=== PATIENT | male | born 1950 | race Caucasian/White ===

== ENCOUNTER 2018-12-14 19:24 | Inpatient (IN) | payer OTHER ==
[~2018-12-14] VITALS: Ht 188 cm; Wt 109.8 kg
[2018-12-14 19:25] VITALS: BP 187/98
--- NOTE | 2018-12-14 19:48 | NUR ---
PT IS TEARFUL, REPORTS STAFF WAS ROUGH WITH HIM DURING BATHING. "TOSSING ME AROUND."
[2018-12-14 19:57] LABS: URINE BILIRUBIN NEGATIVE (Negative); URINE BLOOD TRACE (Negative); URINE CLARITY SL CLOUDY; URINE COLOR YELLOW; URINE GLUCOSE-RANDOM* TRACE (Negative); URINE KETONES NEGATIVE (Negative); URINE LEUKOCYTES-REFLEX NEGATIVE (Negative); URINE NITRITE-REFLEX NEGATIVE (Negative); URINE PROTEIN (DIPSTICK) 2+ (Negative)
[2018-12-14 20:08] LABS: ABSOLUTE NEUTROPHILS 8.4 thou/uL (1.4-8.2); BASOPHILS 1.2 % (0.0-2.0); EOSINOPHILS 2.1 % (0.0-3.0); HEMATOCRIT 43.1 % (42.0-52.0); HEMOGLOBIN 14.1 gm/dL (14.0-18.0); LYMPHOCYTES 16.3 % (24.0-44.0); MCH 27.3 pg (26.0-34.0); MCHC 32.7 g/dL (28.0-37.0); MCV 83.4 fL (80.0-100.0); MONOCYTES 8.2 % (1.0-8.0); PLATELET COUNT 150 thou/uL (150-400); POLYS 72.2 % (36.0-66.0); RBC 5.16 mil/uL (4.50-6.00); RDW 14.4 % (10.5-14.5); WBC 11.6 thou/uL (4.0-11.0)
[2018-12-14 20:10] LABS: AMORPHOUS URATES Many /LPF (None Seen); BACTERIA-REFLEX None Seen /HPF (None Seen); CRYSTALS None Seen /LPF (None Seen); HYALINE CASTS 0-3 Few /LPF (None Seen); MUCUS 0-3 Light strn/LPF (None Seen); SQUAMOUS None Seen /LPF (0-3); URINE RBC 0-2 Rare /HPF (0-2); URINE WBC-REFLEX None Seen /HPF (0-5)
[2018-12-14 20:14] LABS: CALCIUM 9.1 mg/dL (8.5-10.1)
[2018-12-14 20:14] LABS: AMP/METHAMP Negative (Negative); BARBITURATES Negative (Negative); BENZODIAZEPINES Negative (Negative); COCAINE Negative (Negative); METHADONE Negative (Negative); OPIATES POSITIVE (Negative); PCP Negative (Negative)
[2018-12-14 20:17] LABS: SALICYLATE < 2.8 mg/dL (2.8-20.0)
[2018-12-14] MEDS ORDERED: NITROGLYCERIN0.4 MG SUBLING (20:34)
[2018-12-14] MEDS ORDERED: NOVOLOG100 UNIT/1 SUBQ (20:37)
[2018-12-14] MEDS ORDERED: NYAMYC15 GM TOP (20:37)
[2018-12-14] MEDS ORDERED: OMEPRAZOLE 20 M20 M1 PO (20:38)
[2018-12-14] MEDS ORDERED: BASAGLAR K100 UNIT/1 SUBQ (20:38)
[2018-12-14] MEDS ORDERED: BENADRYL25 MG PO (20:39)
[2018-12-14] MEDS ORDERED: CATAPRES0.1 MG PO (20:40)
[2018-12-14] MEDS ORDERED: NEURONTIN 300300 M1 PO (20:42)
[2018-12-14] MEDS ORDERED: GLUCAGEN1 MG/1 ML IM (20:47)
[2018-12-14] MEDS ORDERED: ED-SPAZ0.125 MG PO (20:48)
[2018-12-14] MEDS ORDERED: MIRALAX17 GM PO (20:48)
[2018-12-14] MEDS ORDERED: LASIX 40 MG TAB40 M2 PO (20:48)
[2018-12-14] MEDS ORDERED: MSL20MG/ML PO (20:49)
--- NOTE | 2018-12-14 21:49 | NUR ---
PT REFUSED POTASSIUM PRESCRIBED BY ER DR STATING HE PREFERS NO TREATMENTS TO PROLONG HIS LIFE AND WANTS TO UTILIZE HOSPICE SERVICES. THIS NURSE SPOKE TO DPOA/DAUGHTER TIA LUNDY WHO STATES THESE ARE PATIENTS WISHES AND PT IS A DNR. DTR IS AWARE OF PT REFUSAL OF POTASSIUM AND STATES SHE IS A NURSE AND IS AWARE OF THE POTENTIAL OUTCOME FOR PT IF HE REFUSES RECOMMENDED TREATMENT. DR FRANKS IS AWARE
[2018-12-14 21:57] VITALS: BP 152/80
--- NOTE | 2018-12-14 22:33 | NUR ---
SPOKE WITH [facility] FOREIGN TOUR REGARDING SITUATION. WILL CALL BACK TO SEE IF PT WILL STILL BE CONSIDERED HOSPICE CANDIDATE DUE TO MEDICAL CONDITION
[2018-12-14 22:46] VITALS: BP 153/71
--- NOTE | 2018-12-14 22:47 | NUR ---
[facility] CALLED AGAIN TO LET US KNOW, PT WILL STILL BE IN HOSPICE CARE AND A HOSPICE NURSE WILL COME TO SEE HIM IN THIS HOSPITAL
[2018-12-14 23:20] VITALS: BP 173/81
--- NOTE | 2018-12-15 00:36 | NUR ---
ASSESSMENT COMPLETED. PT HAS A FLAT AFFECT. ALERT TO SELF AND PLACE. PT IS FORGETFUL. SLOW RESPONSE TO QUESTIONS. WITH R SIDED HEMIPLEGIA.PT STATES "THEY ARE MEAN TO ME THERE"PT AGREES TO HAVING THOUGHTS OF DOING SELF HARM.PT IS ON SUICIDE WATCH IN THIS SHIFT. PT VSS. WANTS TO EAT. OBSERVED DRINKING WATER OKAY. HOSPICE NURSE VISITED.PT HAD A LARGE AMOUNT OF LOOSE STOOL. PT DENIES PAIN. IV FLUIDS AND IV POTASSIUM STARTED.FALL PREC IN PLACE. WILL CONTINUE TO CLOSELY MONITOR THROUGH SHIFT.
[2018-12-15 04:18] VITALS: BP 142/63
[2018-12-15 05:25] LABS: HEMATOCRIT 39.5 % (42.0-52.0); HEMOGLOBIN 13.1 gm/dL (14.0-18.0); MCH 27.4 pg (26.0-34.0); MCHC 33.2 g/dL (28.0-37.0); MCV 82.4 fL (80.0-100.0); RBC 4.79 mil/uL (4.50-6.00); RDW 14.4 % (10.5-14.5); WBC 8.9 thou/uL (4.0-11.0)
[2018-12-15 05:49] LABS: CALCIUM 8.8 mg/dL (8.5-10.1); CREATININE 1.1 mg/dL (0.7-1.3)
[2018-12-15 05:51] LABS: POTASSIUM 2.7 mmol/L (3.5-5.1)
[2018-12-15 07:07] VITALS: BP 138/64
--- NOTE | 2018-12-15 09:09 | NUR ---
ORDER FOR P.T. EVAL. Pt IS DEPENDENT WITH MOBILITY AND MECHANICAL LIFT FOR TRANSFERS. Pt IS ON HOSPICE CURRENTLY. Pt IS NOT APPROPRIATE FOR THERAPY IN THE ACUTE SETTING.
[2018-12-15 15:45] VITALS: BP 154/58
[2018-12-15 18:49] VITALS: BP 136/58
--- NOTE | 2018-12-16 03:18 | NUR ---
ASSUMED PT CARE 1899. PT ALERT AND ORIENTED TO SELF. REASSSESSMENT COMPLETE. VSS. SITTIN IN ROOM. SI PRECAUTIONS IN PLACE. MEDICATIONS GIVEN. FREQUENT ROUNDING, Q2 TURN. WILL CONTINUE POC UNTIL EOS.
[2018-12-16 05:03] LABS: HEMATOCRIT 35.7 % (42.0-52.0); HEMOGLOBIN 12.1 gm/dL (14.0-18.0); MCH 27.6 pg (26.0-34.0); MCHC 33.8 g/dL (28.0-37.0); MCV 81.7 fL (80.0-100.0); RBC 4.37 mil/uL (4.50-6.00); RDW 14.4 % (10.5-14.5); WBC 9.7 thou/uL (4.0-11.0)
[2018-12-16 05:16] LABS: CALCIUM 8.6 mg/dL (8.5-10.1); CREATININE 0.9 mg/dL (0.7-1.3); MAGNESIUM 1.9 mg/dL (1.8-2.4)
[2018-12-16 05:25] LABS: POTASSIUM 2.8 mmol/L (3.5-5.1)
[2018-12-16 05:50] VITALS: BP 148/83
[2018-12-16 07:25] VITALS: BP 162/84
--- NOTE | 2018-12-16 11:22 | NUR ---
Assumed care of pt at 0700. Pt in room with sitter. Pt potassium critical this am. IV and PO potassium administered. Potassium lab re-drawn, 3.6. Provider aware. Denies pain. Awaiting placement for inpt psych.
--- NOTE | 2018-12-16 14:12 | EKG ---
[place] [address] [employer] [place] [address] ELECTROCARDIOGRAM REPORT Name: LUNDYSARA Garcia Room #: 420-P ADM IN M.R.#: [id number] ������������������ Admission: 12/14/18 ������������������ Attend Phys: Ceferino Reynoso MD Discharge: ������������������ Date of : 50 Report #: [id number] ����������������������������������������������������������������� [id number] THIS REPORT FOR: //name// [facility] ED Test Date: 2018-12-14 Test Time: 19:41:43 Pat Name: SARA LUNDY Department: Room: [facility] Gender: M Dry Transfer Man: CHARITO : 1950 Requested By: Geo Franklin Order Number: [id number] MD: Gab Zhang Measurements Intervals [place] Rate: 90 P: [place]: QRS: -18 QRSD: 113 T: 140 QT: 391 QTc: 479 Interpretive Statements Atrial fibrillation LVH with IVCD and secondary repol abnrm Inferior infarct, old Poor R wave progression No previous ECG available for comparison Electronically Signed On 12-16-2018 14:12:18 CDT by Gab Zhang [email or web address] ��������������������������������������������� <ELECTRONICALLY SIGNED> ���������������������������������������� By: Gab Zhang MD, [facility] ��������������������������������������������� 12/16/18 1412 40 40 Gab Zhang MD, [facility] /EPI
[2018-12-16 15:53] VITALS: BP 133/64
[2018-12-16 16:51] LABS: CALCIUM 8.7 mg/dL (8.5-10.1); CREATININE 1.1 mg/dL (0.7-1.3); POTASSIUM 3.5 mmol/L (3.5-5.1)
[2018-12-16 19:58] VITALS: BP 160/59
--- NOTE | 2018-12-17 01:38 | NUR ---
ASSUMED PT CARE 1899. PT ALERT AND ORIENTED TO SELF. VSS, BP HIGH, MONITORING. SITTER IN ROOM. REPORTED PAIN, SEE EMAR. DENIES N/V. FALL PRECAUTIONS IN PLACE. Q2 TURNS AND FREQUENT ROUNDING. MULTIPLE BMS THIS SHIFT. WILL CONTINUE POC UNTIL EOS.
[2018-12-17 04:18] VITALS: BP 152/68
[2018-12-17 08:00] VITALS: BP 167/89
--- NOTE | 2018-12-17 09:36 | NUR ---
PATIENT RESTING HAS SITTER IS ON SI PRECAUCTIONS. PT TOOK AM MEDS AND ATE BREAKFAST. NO PAIN OR RESP DISTRESS AT THIS TIME BLOOD SUGARS MONITOERED AND INSULIN ORDERED.
--- NOTE | 2018-12-17 11:30 | NUR ---
WOUND CARE CONSULT; FRICTION WOUNDS TO THE BUTTOCKS BILATERALLY NOTED, NO S/S OF INFECTION NOTED. THE LEFT GREAT TOE HAS A SCABBED AREA ONLY NOT OPEN. NO S/S OF INFECTION. RECOMMENDATION; ZGUARD TO BILATERAL BUTTOCKS DAILY/PRN. 24/10 DEPUTY HEAD PRESENT FOR 1 ON 1 CARE SO NO NEED TO ADD A LOW AIR LOSS PUMP. DISCUSSED WITH RN
--- NOTE | 2018-12-17 12:34 | NUR ---
Assess due to notification of wound. Wound care notes reviewed, pt with friction to buttocks, no pressure ulcer. Eating 50-75%, BG controlled, requires sitter for SI. Hx hospice care. Can add glucerna shake 1x day, otherwise low nutrition risk
--- NOTE | 2018-12-17 14:27 | NUR ---
INITIAL ASSESSMENT: PRECIOUS reviewed chart and spoke with nursing and attending physician. Pt was admitted from [facility] due to suicidal ideation. Pt currently has 1:1 sitter. Pt has been evaluated and accepted to [facility] when medically stable. PRECIOUS spoke with community service officer coordinator at [facility] who states they are not able to accept or back due to behaviors. They are not able to meet pt s needs. Pt with hx of suicide attempts. Pt was on service with [facility] prior to admission. PRECIOUS contacted [facility] liaison to determine if pt revoked hospice prior to admission. Pt did not revoke hospice prior to admission. PRECIOUS discussed case with rn liaison, who states that pt's hospital admission was not related to his hospice dx. Director of Case Mgmt spoke with [facility] liaison. Pt's dtr to sign revocation paper work. Awaiting ppwk at this time. PRECIOUS spoke with pt's dtr, Lissette, via phone. Introduced role of PRECIOUS. Pt has been at [facility] for about two years. Pt has had two other inpt psych hospitalizations: [facility] and [facility]. Pt's dtr states that pt does not want aggressive treatment. Pt's dtr is agreeable with pt going to [facility] unit. PRECIOUS updated attending physician. Awaiting final discharge orders. PRECIOUS is following to assist as needed with discharge planning .
[2018-12-17] MEDS ORDERED: BENADRYL25 MG PO (15:43)
[2018-12-17] MEDS ORDERED: ASPIR 8181 MG PO (15:44)
[2018-12-17] MEDS ORDERED: ALBUTEROL2.5 MG/0.5 INH (15:44)
[2018-12-17 21:03] VITALS: BP 150/76
--- NOTE | 2018-12-18 04:47 | NUR ---
Assumed pt care at 1900. Pt is A/OX3,soft spoken able to make needs known. At the beginning of shift daughter present discussed with sql report writer the pt's wish is to be on comfort care;he doesn't want insulin,potassium,lovenox or fingersticks. She has already communicated with CM about it and they'll follow up today. Only wants pt to take Gabapentin and comfort meds only. C/o back pain, repositioned and pain meds administere with relief reported. Pt is incont of B&B. Denies SI on assessment. Pt upset since he wanted call light with him in bed,explained about SI protoctol and verbalized understanding. Sitter in room with pt. Resting quietly at this time,will continue to monitor pt.
[2018-12-18 08:01] VITALS: BP 198/91
--- NOTE | 2018-12-18 12:38 | NUR ---
Assumed care of pt at 0700. Pt has 1:1 sitter in room. Refuses any medications besides pain and comfort care. Q2h turn. Denies pain. Will continue to monitor.
[2018-12-18 15:10] VITALS: BP 189/92
--- NOTE | 2018-12-18 15:14 | HC ---
[facility] [place] [address] CONSULTATION Name: SARA LUNDY Room #: 420-P ADM IN M.R.#: [id number] Admission: 12/14/18 ������������������ Attend Phys: Jan Zhu MD Discharge: ������������������ Date of : 50 Report #: [id number] THIS REPORT FOR: //name// CC: Jan Zhu Susan Tierra DATE OF SERVICE: 12/17/2018 INPATIENT PSYCHIATRIC EVALUATION PRIMARY ATTENDING PHYSICIAN: Hansa Nicholas MD FUNDRAISING SALE REPRESENTATIVE PSYCHIATRIST: Epifanio Tobar DO REASON FOR CONSULTATION: Suicidal gesture, ideation; appropriateness, stability to [facility]. SOURCES OF INFORMATION: Interview with the patient, review of records. Time this patient was seen was 1600 hours on 12/17/2018. HISTORY OF PRESENT ILLNESS: This is a 68-year-old obese male brought to the Emergency Room on 12/14/2018 at [facility]. He had reportedly made a suicidal gesture of call light cord wrapped around his neck. This occurred shortly after him being felt he was treated roughly by staff when they were giving him a bath today, turned him around, etc. He reported a headache. Denies a history of migraine; denied constitutional system in the ER such as nausea, vomiting, diarrhea, fever or chills. PAST MEDICAL HISTORY: Includes diabetes mellitus type 2, hypertension, hyperlipidemia, atrial fibrillation, COPD, DVT, chronic pain and morbid obesity. He also reported a stroke to ca [address] scan of the head done in the ER showed severe white matter disease compatible with chronic microangiopathy, old infarcts. No intracranial hemorrhage currently. CURRENT PROBLEMS: Include hypokalemia, immobility, stage 1 decubitus ulcer. LABORATORY DATA: Laboratories done in the ER included electrolytes showing sodium 140, potassium 3.0, now improved to 3.5 on 12/17 chloride 101, bicarbonate 27, anion gap 12, BUN 39, creatinine 1.0, estimated GFR 74, glucose 184, calcium 9.1, magnesium 2.0. CBC: White count 11.6, H and H 14.1 and 43.1, platelet count 150. Urinalysis was positive for opiates; negative for salicylates, acetaminophen or other substances. Urinalysis was grossly negative. MEDICATIONS: At senior living include p.r.n. nitroglycerin, insulin aspart, omeprazole, insulin glargine, diphenhydramine, clonidine, gabapentin, glucagon, [address] [address] CONSULTATION Name: SARA LUNDY Room #: 420-P [facility]#: [id number] Admission: 12/14/18 ������������������ Attend Phys: Jan Zhu MD Discharge: ������������������ Date of : 50 Report #: [id number] hyoscyamine, furosemide, polyethylene glycol and morphine oral. His past medical history included above-stated things. In addition, a DVT is noted. PAST PSYCHIATRIC HISTORY: Major depression, probable dementia, although not officially recorded. REVIEW OF SYSTEMS: A 14-point review of systems was done in the ER and was negative except as stated above. PHYSICAL EXAMINATION: Showed a left great toe ulcer on the dorsal region; pressure ulcer to left buttock, stage 2; mild excoriation on scrotum, otherwise normal exam. Given the concerns of his immobility and medical stability, he was admitted medically. The additional notes, the patient was on hospice prior to admission to the hospital. This has been going on for several months. I personally have not been in contact with his daughter, the primary team has and a social studies teacher. She does not want aggressive measures done. On direct interview with the patient, he reported that "he felt didn't like living," denied that he wanted to harm himself including strangle himself, stab himself, etc. VITAL SIGNS: On the day of visitation, temperature 36.9, pulse 65, respirations 18, BP 150/76, weight 109.77 kilos, BMI 31.1. MUSCULOSKELETAL: Immobile, lying in bed, appearing pale. MENTAL STATUS EXAMINATION: Attention limited. Concentration limited. Speech slow, monotone. Thought process linear and goal directed. Thought content focused on questioning, relative poverty of thought. Psychomotor retardation. No psychomotor agitation. Denied SI or HI. Some helplessness, hopelessness. Denied homicidal intent or plan. Memory not formally tested, but known to be impaired to a degree. Insight fair. Judgment fair. Fund of knowledge average range. FORMULATION: A 68-year-old obese male from senior living on hospice due to multiple morbidities including sequela from strokes with a recent suicidal gesture. 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 This relates to a suicidal gesture. RECOMMENDATIONS AND PLAN: At present, I do not find the patient an imminent risk to himself or to others. Certainly given his overall medical situation, he would be above average risk for ideations of suicide; however, the patient is not requiring a 1:1 or suicide precautions at this time. Regarding the patient's stability for admission to the [facility], unfortunately because of him not being out of bed since admission on Monday at [address] [address] CONSULTATION Name: SARA LUNDY Room #: 420-P ADM IN M.R.#: [id number] Admission: 12/14/18 ������������������ Attend Phys: Jan Zhu MD Discharge: ������������������ Date of : 50 Report #: [id number] least, he states a week, requiring multiple people to transfer him, it will be difficult for him to participate in therapeutic milieu and meals, which require a lot of time outside of the room. Also, the [facility] Unit is not equipped with bedside call lights, television stuff for people that have pronounced immobility and cannot participate in the normal activities of the nursing unit. I discussed this at length with the social studies teacher Jeanine and primary attending, Dr. Nicholas. Also, it has come to light that the senior living that sent him into the hospital, [facility], may be refusing to take him back just for the concerns of his suicidal gesture. This in my opinion does not satisfy the regulatory requirements for eviction from a senior living and it appears as well 30 days' notice has not been given. I have advised the primary team that if this is the case or there is suspicion of unlawful eviction that the Social Service authorities of [place] should be contacted. If the patient's mobility status, you know, improves, we can re-evaluate him for [facility] if he is still in the hospital. Otherwise, I would recommend aggressive hospice palliative care. I will defer his medication regimen to the primary team and Dr. Alexandra Davila can provide consultation liaison services while he remains on the Medical Unit. Time spent on interview, review of records, coordination of care of this patient was approximately 45 minutes. ��������������������������������������������� <ELECTRONICALLY SIGNED> ���������������������������������������� By: Epifanio Tobar DO ��������������������������������������������� 12/18/18 1514 0954 [id number] Epifanio Tobar DO /nt
--- NOTE | 2018-12-18 16:44 | NUR ---
CARE TEAM INDICATEING THAT PT IS MEDICALLY STABLE TO DC BAKC TO FACILITY THIS DAY. CM CALLED AND SPOKE WITH ASHLIE IN ADMISSIONS AND SHE INDICATED THAT DON WILL NEED TO REVIEW CLINICALS TO SEE IF THEY CAN ACCEPT PT BACK. WE ARE AWAITING DR. HUI TO VISIT WITH PT OF THIS NOTE. CM NOTIFIED PHYSICAIN THAT DON AT [facility] [place] TO REVIEW CLINICAL INFO WHICH INDICATES THAT PT ISN'T A DANGER TO HIMSELF. CM TO FOLLOW INDICATED WITH DC PLANNING.
--- NOTE | 2018-12-18 17:05 | NUR ---
[facility] COHEN'S AND DR VASQUEZ'S NOTES.
[2018-12-18 19:53] VITALS: BP 172/90
[2018-12-19 03:47] VITALS: BP 160/74
--- NOTE | 2018-12-19 05:06 | NUR ---
Assumed pt care at 1900. Pt A/OX3,able to make needs known. VSS. Denies pain on assessment. Incontinent of B&B,bed bath completed this morning w/o problems. Pt has a sitter in room, no verbalization of SI.Meds given per dtrs request for comfort at HS. Resting queitly at this time with no distress noted. Will continue to monitor pt.
[2018-12-19 05:55] LABS: HEMATOCRIT 36.7 % (42.0-52.0); HEMOGLOBIN 12.1 gm/dL (14.0-18.0); MCH 27.1 pg (26.0-34.0); MCHC 32.9 g/dL (28.0-37.0); MCV 82.3 fL (80.0-100.0); PLATELET COUNT 236 thou/uL (150-400); RBC 4.46 mil/uL (4.50-6.00); RDW 14.2 % (10.5-14.5)
[2018-12-19 06:07] LABS: ALBUMIN 2.8 g/dL (3.4-5.0); CALCIUM 8.8 mg/dL (8.5-10.1); CREATININE 0.9 mg/dL (0.7-1.3); MAGNESIUM 1.7 mg/dL (1.8-2.4); PHOSPHORUS 3.2 mg/dL (2.5-4.9); POTASSIUM 3.1 mmol/L (3.5-5.1); TOTAL BILIRUBIN 0.5 mg/dL (<0.1-1.0); TOTAL PROTEIN 6.3 g/dL (6.4-8.2)
[2018-12-19 08:00] VITALS: BP 142/65
[2018-12-19 08:26] LABS: ANISOCYTOSIS SLIGHT
--- NOTE | 2018-12-19 09:51 | NUR ---
WOUND CARE FOLLOW UP; THE BILATERAL BUTTOCKS WOUNDS ARE HEALED. NO OTHER CONCERNS AT THIS TIME. RECOMMENDATION; WOUND CARE WILL SIGN OFF AST THIS TIME, RECONSULT IF NEEDED. DISCUSSED WITH RN
[2018-12-19 15:13] VITALS: BP 153/77
--- NOTE | 2018-12-19 15:58 | NUR ---
FAXED CLINICAL UPDATE TO [facility] SPOKE WITH ASHLIE IN ADM SHE RECEIVED UPDATE AND WILL ACCEPT PT AT DISCHARGE. ANTICIPATE DC TOMORROW 12/20. DCP TO FOLLOW.
--- NOTE | 2018-12-19 16:16 | NUR ---
ASSUMED CARE OF PT AT 0700. PT IS INCONTINENT OF BOWEL AND BLADDER. PT REFUSES MEDICATIONS ASIDE FROM PAIN MEDICATIONS AND ANTIBIOTICS. Q2 HOUR TURN. PT HAS MAJOR DEPRESSION AND CRIES THROUGHOUT THE DAY. PT REFUSES MOST OF HIS MEALS. PT REFUSES ACCUCHECK AND INSULIN. SITTER HAS BEEN D/C. AWAITING PLACEMENT. FALL PRECAUTIONS IN PLACE. WILL CONTINUE TO MONITOR.
--- NOTE | 2018-12-19 17:07 | NUR ---
RECEIVED WORD BACK FROM ASHLIE FROM [facility] THAT THEY CAN ACCEPT PT BACK. S/W PT AND HE IS OK WITH RETURNING TO [facility]. S/W DTR TIA BY PHONE AND SHE STILL REALLY WANTS PT EVALUATED BY HOSPICE. S/W DR MANE TO INFORM HER OF THIS. FAXED REFERRAL TO HOSPICE & RECEIVED CALL THAT THEIR [facility] SPECIALIST WOULD LIKE TO HAVE A CONVERSATION WITH THE PRIMARY DR. INFORMED DR MANE OF THIS. SHE OUTINED IN HER PROGREE NOTE OF TODAY PT'S CURRENT CONDITION & THIS WAS FAXED TO [facility] ALSO. IF PT DOES NOT QUALIFY FOR HOSPICE HOUSE DTR IS AGREEABLE FOR PT TO RETURN TO [facility] WITH HOSPICE CARE & IS AGREEABLE TO HAVING [facility] AGAIN IF THEY WILL ACCEPT HIM BACK OR ANOTHER HOSPICE. BOTH PT AND DTR ONLY WISH FOR COMFORT MEDS. DR MANE INFORMED OF THIS ALSO.
[2018-12-20 04:20] VITALS: BP 139/84
--- NOTE | 2018-12-20 04:39 | NUR ---
Assumed pt care at 1900. A/OX3,VSS. C/o back pain/headache medicated with Morphine per EMAR with relief reported. No SI voiced. C/o constipation, prune juice given,abd distended BS active. Incontinent of B&B. Fall precautions in place,diaz given to pt to call for assistance and doing so. Will continue to monitor pt.
[2018-12-20 07:44] VITALS: BP 149/84
--- NOTE | 2018-12-20 10:04 | NUR ---
PT RESTING IN BED. THIS NURSE FEED PATIENT BREAKFAST. TOOK AM PILLS REFUSED INSULIN S/S AND SCEDULED. ABD IS FIRM AND DISTENDED, DR MANE HERE AND ORDERED SUPP AND KUB. PT ALERT XS 4 PLEASANT AND COOPERATIVE WITH CARE.
--- NOTE | 2018-12-20 12:31 | NUR ---
CALLED DR MNAE TO LET HER KNOW THAT PATIENT WWAS BACK FROM [facility] AND REPORT WAS IN COMPUTER SHE STATED SHE WOULD READ IT
[2018-12-20 16:10] VITALS: BP 139/76
[2018-12-20 19:40] VITALS: BP 175/86
[2018-12-20 23:47] VITALS: BP 170/87
--- NOTE | 2018-12-21 02:41 | NUR ---
ASSESSMENT COMPLETED.PT C/O PAIN ON HIS BUTTOCK,MANAGED WITH MED.ABD DISTENTED AND FIRM,POSITIVE BOWEL SOUND.PT'S BG 219, PT REF INSULIN.PT REPOSITIONED WHILE IN BED.PT RESTING ON HIS BED AT THIS TIME.NO SIGN OF SELF HARM NOTED SO FAR.FALL PRECAUTIONS IN PLACE,CALL LIGHT WITHIN REACH.
[2018-12-21 04:36] VITALS: BP 156/64
[2018-12-21 06:09] LABS: ABSOLUTE NEUTROPHILS 6.3 thou/uL (1.4-8.2); BASOPHILS 0.7 % (0.0-2.0); EOSINOPHILS 1.7 % (0.0-3.0); HEMATOCRIT 37.7 % (42.0-52.0); HEMOGLOBIN 12.4 gm/dL (14.0-18.0); LYMPHOCYTES 22.1 % (24.0-44.0); MCH 26.9 pg (26.0-34.0); MCHC 32.8 g/dL (28.0-37.0); MCV 82.2 fL (80.0-100.0); MONOCYTES 12.5 % (1.0-8.0); PLATELET COUNT 234 thou/uL (150-400); RBC 4.59 mil/uL (4.50-6.00); RDW 14.5 % (10.5-14.5)
[2018-12-21 07:07] VITALS: BP 168/70
[2018-12-21 10:09] LABS: ALBUMIN 2.7 g/dL (3.4-5.0); CALCIUM 8.6 mg/dL (8.5-10.1); MAGNESIUM 1.5 mg/dL (1.8-2.4); PHOSPHORUS 3.6 mg/dL (2.5-4.9); TOTAL BILIRUBIN 0.3 mg/dL (<0.1-1.0); TOTAL PROTEIN 6.5 g/dL (6.4-8.2)
[2018-12-21 14:06] LABS: POTASSIUM 2.5 mmol/L (3.5-5.1)
--- NOTE | 2018-12-21 15:30 | NUR ---
PT DISCHARGING TODAY TO [facility] WITH [facility] FAXED DC ORDERS/SUMMARY TO FACILITY SPOKE WITH ASHLIE IN ADM SHE RECEIVED DC ORDERS AND THAT I WOULD NEED TO SET UP TRANSPORTATON THROUGH [employer] PT HAS MEDICAID #[id number] WHICH WAS GIVEN TO ME FROM [facility]. [facility] WILL PICK PT UP BY YAKOV MORRIS BETWEEN 1500 -1800 TODAY. NOTIFIED PT'S DTR (TIA) OF DC AND TIME OF TRANSPORT. UNIT NOTIFIEDN AND CHART COPY PER US. RN TO CALL REPORT TO [phone].
--- NOTE | 2018-12-21 16:01 | NUR ---
PT TO DISCHARGE TO [facility]. CALLED TO GIVE REPORT AT THIS TIME THEY WILL CALL BACK NURSE WAS BUSY. IV ACSESS DCD. ALL BELONGINGS PACKED AND SENT WITH PATIENT. CRITICAL KCL 2.[address] ANTONIETTA SIMPSON NEW ORDER FOR KCL PO LIQUID 60 MEQ XS1. PATIENT WAS GIVEN. CALLED DAUGHTER DPOA TO GET VERBAL SO FACILITY COULD BILL MEDICARE AWAITING CALL BACK. WOUND DISCHARGE PAPERS TAKEN.
--- NOTE | 2018-12-21 18:34 | NUR ---
RECIEVED TELEPHONE VERBAL OKAY TO SIGN MEDICARE PAPERS FOR BILLING SPOKE WITH TIA SALCIDO. THIS KATERINAE AND ANOTHER NURSE RECIEVED VERBAL OKAY
[2018-12-21 19:15] VITALS: BP 154/76
--- NOTE | 2018-12-21 19:40 | NUR ---
PT DISCHARGED AT THIS TIME. [facility] TRANSPORTING TO [facility] [place]. ALL BELONGINGS PACKED AND SENT WITH PATIENT. IV ACSESS DCD. PT W/O PAIN OR RESP DISTRESS AT DISCHARGE.
== END 2018-12-21 20:07 | disposition hospice, inpatient (51) | DRG 641 ==
LOC: ER 19:24 → EROBS 21:36 → 4E 21:36
PROVIDERS: Emergency Medicine; Internal Medicine; Nurse Practitioner Family; ADMIT Internal Medicine
DX: E87.6 Hypokalemia (principal); F32.3 Major depressive disorder, single episode, severe with psychotic features; R45.851 Suicidal ideations; I50.42 Chronic combined systolic (congestive) and diastolic (congestive) heart failure; I69.351 Hemiplegia and hemiparesis following cerebral infarction affecting right dominant side; G93.40 Encephalopathy, unspecified; I48.2 Chronic atrial fibrillation; J44.9 Chronic obstructive pulmonary disease, unspecified; Z66 Do not resuscitate; E78.5 Hyperlipidemia, unspecified; R14.0 Abdominal distension (gaseous); E66.9 Obesity, unspecified; I11.0 Hypertensive heart disease with heart failure; L89.91 Pressure ulcer of unspecified site, stage 1; G89.29 Other chronic pain; E66.01 Morbid (severe) obesity due to excess calories; I69.30 Unspecified sequelae of cerebral infarction; F43.20 Adjustment disorder, unspecified; N40.0 Benign prostatic hyperplasia without lower urinary tract symptoms; E11.42 Type 2 diabetes mellitus with diabetic polyneuropathy; Z79.82 Long term (current) use of aspirin; Z68.31 Body mass index [BMI] 31.0-31.9, adult; Z89.022 Acquired absence of left finger(s); Z86.718 Personal history of other venous thrombosis and embolism; Z91.14 Patient's other noncompliance with medication regimen; Z79.899 Other long term (current) drug therapy
CPT/HCPCS: 10084